=== PATIENT | male | born 1995 | race African-American/Black ===

== ENCOUNTER 2018-06-14 15:38 | Emergency (ER) | payer OTHER ==
[2018-06-14 15:45] VITALS: BP 151/103
--- NOTE | 2018-06-14 15:57 | ED Physician Documentation ---
History of Present Illness - Stated complaint Stated Complaint: STI TEST - Chief complaint Chief Complaint: General - History obtained from History obtained from: Patient - History of Present Illness Timing: Today (He was having sex earlier today with his established monogamous girlfriend and he briefly had bleeding from his penis. It was painless but his girlfriend convinced him to get checked out for STDs.) Review of Systems Constitutional: reports: Reviewed and negative Throat: reports: Reviewed and negative Cardiac: reports: Reviewed and negative Respiratory: reports: Reviewed and negative PD PAST MEDICAL HISTORY - Present Medications Home Medications: Ambulatory Orders Medication Instructions Recorded Confirmed No Known Home Medications 06/14/18 06/14/18 - Allergies Allergies/Adverse Reactions: Allergies Allergy/AdvReac Type Severity Reaction Status Date / Time No Known Drug Allergies Allergy Verified 06/14/18 15:45 PD ED PE NORMAL - Vitals Vital signs reviewed: Yes - General General: Alert and oriented X 3, No acute distress - Abdomen Abdomen: Soft, Non tender - Male Male : Other (Normal genitals, no dischg or rash, no LAD) - Neuro Neuro: Alert and oriented X 3, Normal speech Results - Vitals Vitals: Vital Signs - 24 hr 06/14/18 15:43 Temperature 37.5 C Heart Rate 99 Respiratory 16 Rate Blood Pressure 151/103 H O2 Saturation 98 Oxygen O2 Source Room air Departure - Departure Disposition: 01 Home, Self Care Clinical Impression: Concern about STD in male without diagnosis Condition: Good Record reviewed to determine appropriate education?: Yes Instructions: ED Chlamydia GC Poss Culture Pend Comments: Your blood pressure was elevated today on check into the emergency department. This does not mean that you have hypertension, it is a common phenomenon to come to the emergency department and have elevated blood pressure. I recommend that you see your primary care physician within the week to have it rechecked when you are feeling better.
== END 2018-06-14 16:01 | disposition home or self-care (01) ==
LOC: ED 15:38
DX: N48.89 Other specified disorders of penis (principal); R03.0 Elevated blood-pressure reading, without diagnosis of hypertension
CPT/HCPCS: 87491; 87591; 99281; 99282

== ENCOUNTER 2021-08-15 14:12 | Outpatient (CLI) | payer OTHER ==
[2021-08-15] MEDS ORDERED: GADOBUTROL 15 MMOL/15 ML VIAL ONE (14:24)
[2021-08-15] MEDS: GADOBUTROL 15 MMOL/15 ML VIAL IVP ONE (16:37)
--- NOTE | 2021-08-15 16:44 | MRI Report ---
PROCEDURE: Foot RT W/WO INDICATIONS: PAIN AND EDEMA CONTRAST: IV CONTRAST: Gadavist ml: 12.2 TECHNIQUE: Noncontrast sagittal T1 spin echo and T2 fast spin echo with fat saturation, long-axis T1 spin echo a nd T2 fast spin echo with fat saturation; short-axis T1 spin echo, proton density fast spin echo, and T2 fast spin echo with fat saturation through the forefoot. Post-contrast short axis, long axis, an d sagittal T1 spin echo with fat saturation through the forefoot. COMPARISON: None. FINDINGS: Image quality: Excellent. Bones and joints: Mild edema involving plantar aspect of medial distal talus adjacent to talonavicula r joint is seen and show mild nonspecific contrast enhancement. No discrete fracture line is seen. Mi ld first MTP joint osteoarthritic changes are seen with joint space narrowing and subchondral scleros is. Osteoarthritic changes involving articulation between first metatarsal head and medial sesamoid b one is also noted with mild marrow edema in plantar aspect of medial first metatarsal head. No gross signal abnormality within the sesamoid bone is seen. No other area of abnormal intraosseous enhanceme nt or edema. No metatarsal stress fracture. There is also. No intraosseous lesions. Small amount of fluid is seen within tibiotalar joint, subtalar joint and talonavicular joint. No gross intra-articu lar loose bodies. Soft tissues: Thickened posterior tibialis tendon at the level of distal talus/talonavicular joint i s seen with surrounding edema and intrasubstance T2 hyperintense signal suggestive of tendinosis and low to moderate grade intrasubstance partial thickness tear. No full-thickness tendon rupture. Rest o f the flexor tendons are intact. Peroneus tendons and extensor tendons are grossly intact. Visualized portion of plantar fascia is within normal limits. No suspicious soft tissue enhancement. The visua lized plantar foot muscles demonstrate normal signal and bulk. Visualized flexor and extensor tendon s appear intact, without tenosynovitis. The distal insertions of the peroneus brevis and longus tend ons appear intact. The principal Lisfranc ligament appears intact. No soft tissue ganglion cysts or bursal fluid collections. Sagittal images demonstrate no evidence for plantar plate tears. IMPRESSION: 1. Tendinosis and low to moderate grade intrasubstance partial thickness tear involving posterior tib ialis tendon at the level of distal talus/talonavicular joint which corresponds to patient's reported area of pain. No full-thickness tendon rupture. 2. Mild edema involving plantar and medial periphery of distal talus adjacent to talonavicular joint adjacent to the posterior tibialis tendon and likely represent reactive inflammatory changes. 3. Osteoarthritic changes involving first MTP joint and articulation between first metatarsal head an d medial sesamoid bone. Subtle edema involving plantar and medial portion of first metatarsal head li jenn represent changes related to osteoarthritis versus mild contusion. No fracture or dislocation. N o metatarsal stress fractures. 4. Rest of the tendons and ligaments of the foot are grossly intact. Reviewed by: Michael Trammell MD on 08/15/2021 4:42 PM PST Approved by: Michael Trammell MD on 08/15/2021 4:42 PM PST Station ID: [id number]
== END 2021-08-15 14:13 | disposition home or self-care (01) ==
LOC: DI 14:12
PROVIDERS: ATTEND Podiatrist
DX: S86.121A Laceration of other muscle(s) and tendon(s) of posterior muscle group at lower leg level, right leg, initial encounter (principal); M19.071 Primary osteoarthritis, right ankle and foot
CPT/HCPCS: 73720; A9585

== ENCOUNTER 2021-11-01 07:11 | Outpatient (CLI) | payer OTHER ==
--- NOTE | 2021-11-01 16:17 | MRI Report ---
PROCEDURE: Foot RT W/O INDICATIONS: SPONTANEOUS RUPTURE OF OTHER TENDONS, RIGHT ANKLE TECHNIQUE: Noncontrast sagittal T1 spin echo and T2 fast spin echo with fat saturation, long-axis T1 spin echo a nd T2 fast spin echo with fat saturation, short-axis proton density fast spin echo and T2 fast spin e cho with fat saturation through the forefoot. COMPARISON: August 15, 2021. Findings: Bones: No evidence of fracture, infiltration, ischemia or contusion. Suggestive pes planus. Muscles: No evidence of muscular atrophy or edema. Anterior tibiofibular ligament: Intact. Posterior tibiofibular ligament: Intact. Calcaneofibular ligament: Intact. Talar dome: No significant abnormality. Anterior talofibular ligament: Intact. Posterior talofibular ligament: Intact. Deltoid ligament: Intact. Peroneal tendons: No evidence of tear or tenosynovitis. Tibialis posterior: No evidence of tear or tenosynovitis. Flexor digitorum: No evidence of tear or tenosynovitis. Flexor hallucis longus: Intact. Noncircumferential T2 hyperintense signal. Sinus Tarsi: T2 hyperintense signal, which may reflect edema. Joint effusion: Small tibiotalar joint effusion. Plantar fascia: No evidence of tear or inflammation. IMPRESSION: 1. Persistent edema within the sinus Tarsi. 2. Small tibiotalar joint effusion. 3. Noncircumferential fluid about the flexor hallucis longus, which may reflect developing tenosynovi tis. Reviewed by: Raymond Aldridge MD on 11/01/2021 4:15 PM PDT Approved by: Raymond Aldridge MD on 11/01/2021 4:15 PM PDT Station ID: [id number]
== END 2021-11-01 07:12 | disposition home or self-care (01) ==
LOC: DI 07:11
PROVIDERS: ATTEND Podiatrist
DX: S83.121A Posterior subluxation of proximal end of tibia, right knee, initial encounter (principal); R60.0 Localized edema; M25.471 Effusion, right ankle; R93.6 Abnormal findings on diagnostic imaging of limbs

== ENCOUNTER 2023-12-01 07:37 | Outpatient (CLI) | payer OTHER ==
--- NOTE | 2023-12-03 09:13 | Ultrasound Report ---
PROCEDURE: Abdomen Limited INDICATIONS: OBESITY TECHNIQUE: Real-time focused scanning was performed of the abdomen, with image documentation. COMPARISONS: None. FINDINGS: Liver: Liver is normal in size and increased in echogenicity, more prominent along the mid and poste rior aspect. Gallbladder: No gallstones, sludge, wall thickening or pericholecystic edema. Biliary ducts: Intrahepatic bile ducts are non-dilated. Extrahepatic bile duct caliber measures 3 m m. Normal is 6-7 mm or less in diameter, or 10 mm or less post-cholecystectomy. Pancreas: Visualized portions of the pancreas are sonographically normal. Pancreatic tail is not wel l seen. Right kidney: Normal in size and echotexture. Right kidney measures 10.8 cm long. No hydronephrosis or nephrolithiasis. No solid masses. No complex renal cystic lesions which require follow-up. IVC: Intrahepatic inferior vena cava is patent. Miscellaneous: No free abdominal fluid. IMPRESSION: Liver is increased in echogenicity, most consistent with hepatic steatosis. Reviewed by: Francisco Johnson MD on 12/03/2023 9:12 AM PDT Approved by: Francisco Johnson MD on 12/03/2023 9:12 AM PDT Station ID: [id number]
== END 2023-12-01 07:38 | disposition home or self-care (01) ==
LOC: DI 07:37
PROVIDERS: ATTEND Internal Medicine
DX: R73.03 Prediabetes (principal); E66.9 Obesity, unspecified; I10 Essential (primary) hypertension